=== PATIENT | male | born 1990 | race Two or more races ===

== ENCOUNTER 2021-02-16 20:37 | Emergency (ER) | payer MEDICAID, OTHER ==
[~2021-02-16] VITALS: Ht 172.7 cm; Wt 65.8 kg
--- NOTE | 2021-02-16 20:50 | NUR ---
PT BIBRA 878 FOR C/O SI. PT REPORTED HX OF MANIC DEPRESSION, PLACED IN BED 15 IN GOWN, ON MONITOR, AND PULSE OX. SITTER AT BEDSIDE.
[2021-02-16 21:04] LABS: BILIRUBIN,URINE Negative (NEGATIVE); COLOR,URINE YELLOW (YELLOW); LEUKOCYTE ESTERASE ,URINE Negative (NEGATIVE); NITRITE, URINE Negative (NEGATIVE); PROTEIN,URINE 100 mg/dl (NEGATIVE); UGLUCOSE Negative (NEGATIVE)
[2021-02-16 21:06] LABS: BACTERIA,URINE Rare /HPF (None Seen); SQUAMOUS EPITHELIAL CELL,UR Few /HPF (None Seen); WBC,URINE NONE SEEN /HPF (0-3)
--- NOTE | 2021-02-16 21:06 | NUR ---
STANISLAWID SWABBED, SENT TO LAB.
[2021-02-16 21:19] LABS: BASOPHILS # (AUTO) 0.1 /CMM (0.0-0.2); BASOPHILS % (AUTO) 0.5 % (0.0-2.0); EOSINOPHILS % (AUTO) 1.4 % (0.0-6.0); HEMATOCRIT 49 % (39-51); HEMOGLOBIN 16.4 g/dL (13.5-17.5); LYMPHOCYTES # (AUTO) 2.4 /CMM (0.8-4.8); LYMPHOCYTES % (AUTO) 25.3 % (20.0-44.0); MEAN CORPUSCULAR HGB CONC 34 g/dl (31.0-36.0); MEAN CORPUSCULAR VOLUME 94 fL (80-96); MONOCYTES # (AUTO) 0.7 /CMM (0.1-1.30); MONOCYTES % (AUTO) 7.4 % (2.0-12.0); NEUTROPHILS # (AUTO) 6.3 /CMM (1.8-8.9); NEUTROPHILS % (AUTO) 65.4 % (43.0-81.0); PLATELET COUNT (AUTO) 129 /CMM (150-450); RED BLOOD CELL COUNT(AUTO) 5.15 MIL/uL (4.5-6.0); WHITE BLOOD COUNT (AUTO) 9.7 K/uL (4.3-11.0)
[2021-02-16 21:45] LABS: BILIRUBIN,DIRECT 0.3 mg/dL (0.0-0.2); BILIRUBIN,TOTAL 0.9 mg/dL (0.2-1.0); CALCIUM, SERUM 8.9 mg/dL (8.5-10.1); POTASSIUM 3.3 mmol/L (3.5-5.1); TOTAL PROTEIN, SERUM 8.5 g/dL (6.4-8.2)
--- NOTE | 2021-02-16 21:52 | NUR ---
LAB CALLED REGARDING NEGATIVE COVID RESULT.
[2021-02-16] MEDS ORDERED: POTASSIUM CHLORIDE 20 MEQ TAB.PRT.SR PO ONE (22:02)
--- NOTE | 2021-02-16 22:02 | NUR ---
CLINICAL AND FACESHEET FAXED TO [facility] INTAKE FOR VOLUNTARY PSYCH ADMISSION.
[2021-02-16] MEDS: POTASSIUM CHLORIDE 20 MEQ TAB.PRT.SR PO ONE (22:07)
--- NOTE | 2021-02-17 11:25 | NUR ---
"SS Consult: SS Consult requested for SI+ & homelessness. The pt. is a 30 year old Black male. KRISH met with pt. bedside. The pt. is alert & oriented x 4. Pt. appears well-groomed. Pt.s mood is depressed with flat affect. Pt. stated he is having suicidal thoughts and has spent the last 10 days in a [address] [[address] [facility], [place] [address]] trying to drink myself to . Pt. stated he has a Hx. of Manic Depression, Generalized Anxiety and is not on medication. SW offered pt. voluntary placement in a psychiatric facility and pt. was agreeable. SW explored pt.s living situation. Pt. stated he has been experiencing homelessness for the past 1 month where he has lived at the [address]. SW provided pt. with homeless resources and pt. was agreeable. SW conducted alcohol intervention with pt. and provided him with addiction resources. Pt. denies HI and denies hallucinations. Pt. stated his support system includes his brother, Kt Dietrich [phone] and his best friend, Ji [phone]. stated he received General Relief. Plan: KRISH referred pt. to [facility] [[address] [place] [address] ] for inpatient psychiatric treatment. Pt. signed homeless waiver & it was placed in the pt.s chart. KRISH provided pt. with the following resources and pt. accepted them: Substance Abuse resources : [facility] Substance Abuse Self-Helpline ([facility]) ; [facility] [address] [facility]. [place] [address] ; [facility] [address] [place] [address] ; [facility] [address] [facility] [address] ; [facility] [address] [facility] [address] ; [facility] [address] [facility] [address] ; [facility] [address] [facility] [phone] ; [facility] Substance Abuse Helpline(SAS)-[facility] ; [facility] ; [facility] [place]; [facility] [place]; [facility] [place]; [facility] Michael Rocha; [facility] health; [facility] health; [facility] [place]; [facility] [employer]. [facility]; Alcoholics Anonymous -SFV; Qq-Xgcv-Dlrrjai ; Marijuana Anonymous -SFV; Narcotics Anonymous www.na.org; Year-round shelters: [place] [address] [place], [place] [phone] ; [facility] [facility] [address] [place] [address]; [place] [facility] Nndccac1673 [facility] [address] Winter Shelters: [place] [facility] Provider: Gail of [place] Address: [address] [facility] Center[facility] [place], [address] # of Beds: 47 Population Served: [facility] 6 | [facility] Isabel Santana [place] Provider: Home at Last Address: [address] [facility], [address] # of Beds: 66 Population Served: [facility] eÓtica [place] Provider: First to Serve Address: [address] [facility], [address] # of Beds: 56 Population Served: Sergey Austin Provider: SSCourtney/ [facility] Address: [address] [facility], [address] # of Beds: 49 Population Served: [facility] SPA 8 | [place] Register Provider: First to Serve Address: [address] [place], [place] [address]Analy [place] [address] # of Beds: 37 Population Served: [facility] Hygiene: [facility]: [address] [place] ; [facility] [address] [facility] ; [facility] [address], [place] . Food Resources: [place] [facility] at [facility]- [address] [place]; Meet Each Need with Dignity ([facility]) [address] [facility]; [facility] Food Pantry [address] [facility]; [facility] [address] [facility]. Mental Health resources provided: [facility] [address] [place] [address] ; [facility] [address] [facility] [address], [place], [place] [phone] ; [facility] [address] [place], [place] [phone] ; [facility] [address] [place], [place] [phone] Healthcare Clinics: [facility] [address] [facility], [address] [place]. [place] ; [facility] [address] [facility] [address] [place] [address]; [facility] [address] [facility]. [place] [phone] Counseling--Outpatient [facility] [address] [facility], [place] [address] (Specializes in in-depth psychotherapy for emotional distress: anxiety, depression, interpersonal conflicts, life transitions, childhood abuse) [facility] [address] [place], [place] [address] (Assist with solving problem marital difficulties, separation & divorce, aging parents, & grief, chronic & terminal illness) [facility] [address] [place], [place] [address] (Deal with loss & grief, anxiety, marital difficulties) Homebound/Mental Health Services [address] [place] [address] (Provide in-home mental services to people who are incapable of leaving their homes) [facility] Elderly Senior Service/Resource Center [address] [place] [address] [facility] [address] Mejía[place], [place] [phone] PSYCHIATRIC OUTPATIENT SERVICES [facility] Partial Hospitalization and Intensive Outpatient Program (Managed Care and [place] Only)[address]. [facility] [phone] [facility] Partial Hospitalization and Outpatient [id number]. [address] [place], [place] [phone] [facility] Partial Hospitalization and Outpatient Ogyfkdr6953 [facility] Hospital[facility]bo. [place], [place] [phone] [facility] [id number] [place] [phone] [facility] Partial Hospitalization and Outpatient Onoueog[address] [facility] Rocha [phone] "
[2021-02-17 11:32] VITALS: BP 140/84
--- NOTE | 2021-02-17 11:32 | NUR ---
PATEINT RESTING, NEEDS ATTENDED.
--- NOTE | 2021-02-17 14:31 | NUR ---
call from [facility],accepted by Dr Potts to unit 2,[facility],report to [phone]
--- NOTE | 2021-02-17 14:37 | NUR ---
TRANSPORT CALLED [facility] ETA 30-45 MINS PER NOREEN.
--- NOTE | 2021-02-17 14:53 | NUR ---
REPORT GIVEN TO TOMA CASTRO FOR REECE.
--- NOTE | 2021-02-17 15:24 | NUR ---
REPORT GIVEN TO QUILLER MACHINE FIXER. PATIENT A/OX4. IN STABLE CONDITION. NO DISTRESS NOTED.
--- NOTE | 2021-02-17 15:25 | NUR ---
PATIENT WILL TRANSFERRED TO [facility]. IN NO DISTRESS.
== END 2021-02-17 15:28 ==
LOC: ER 20:39
DX: R45.851 Suicidal ideations (principal); Z59.0 Homelessness; Z20.822 Contact with and (suspected) exposure to COVID-19; E87.6 Hypokalemia; F10.129 Alcohol abuse with intoxication, unspecified; Y90.9 Presence of alcohol in blood, level not specified
CPT/HCPCS: 36415 ×2; 80048; 80076; 80299; 80307; 80320 ×3; 81001; 85025; 87426; 99285; C9803; G0480